=== PATIENT | female | born 1980 | race Caucasian/White ===

== ENCOUNTER → 2017-12-15 09:39 | Outpatient (CLI) | payer BC ==
[~2017-12-15 09:39] MED LIST: ADIPEX-P37.5 MG PO; IBUPROFEN800 MG PO; ULTRAM50 MG PO
[2017-12-15 10:28] LABS: BASOPHILS 0.1 % (0-2); EOSINOPHILS 0.9 % (0-7); HEMATOCRIT 40.4 % (36.0-48.0); HEMOGLOBIN 13.4 g/dL (12-16); IMMATURE GRANULOCYTES 0.1 % (0-5); LYMPHOCYTES 34.2 % (15-50); MCH 31.2 pg (26.0-34.0); MCHC 33.2 g/dL (31.0-37.0); MEAN PLATELET VOLUME 9.3 fL (7.4-10.4); MONOCYTES 8.9 % (2-11); NEUTROPHILS 55.8 % (40-80); PLATELET COUNT 307 10x3/uL (130-400); RDW 12.6 % (11.5-14.5)
[2017-12-15 11:05] LABS: ALKALINE PHOSPHATASE 78 U/L (46-116); ALT (SGPT) 41 U/L (10-68); BILIRUBIN - TOTAL 0.25 mg/dL (0.2-1.3); CALC OSMOLALITY 277 mosm/kg (275-300); CALCIUM 9.3 mg/dL (8.5-10.1); CARBON DIOXIDE 34.6 mmol/L (21.0-32.0); CHLORIDE - SERUM 103 mmol/L (98-107); CHOL - HDL RATIO 2.7 ratio (2.3-4.1); CHOLESTEROL, TOTAL 172 mg/dL (0-200); CREATININE - SERUM 0.8 mg/dL (0.6-1.3); GLUCOSE 88 mg/dL (74-106); HDL CHOLESTEROL 64 mg/dL (32-96); LDL CHOLESTEROL 90 mg/dL (0-100); LDL-HDL RATIO 1.4 ratio (1.5-3.5); PROTEIN - SERUM 7.4 g/dL (6.4-8.2); SODIUM 140 mmol/L (136-145); THYROID STIMULATING HORMONE 1.08 uIU/mL (0.36-3.74); TRIGLYCERIDE 94 mg/dL (30-200); UREA NITROGEN 13 mg/dL (7-18); eGFR NON AFRICAN AMERICAN 85 mL/min (90-120)
[2018-03-10 07:37] VITALS: BMI 27.4
== END | disposition home or self-care (01) ==
LOC: D.US 09:39
PROVIDERS: Family Medicine
DX: R22.2 Localized swelling, mass and lump, trunk (principal)

== ENCOUNTER 2018-03-10 06:57 | Day surgery (SDC) | payer BC ==
[~2018-03-10] VITALS: Ht 154.9 cm; Wt 65.8 kg
--- NOTE | ~2018-03-10 | OP ---
PATIENT NAME: JASPREET MADRIGAL MEDICAL RECORD: [id number] :76 LOCATION:[facility] ADMISSION DATE: SURGEON: CHI MORSE MD DATE OF OPERATION: 03/10/2018 PREOPERATIVE DIAGNOSIS: Subcutaneous lipomas of the right medial proximal arm as well as 2 on the lower back. POSTOPERATIVE DIAGNOSIS: Subcutaneous lipomas of the right medial proximal arm as well as 2 on the lower back. PROCEDURES: Excision of right upper extremity lipoma, large; as well as excision of 2 lower back lipomas, one on the right and one on the left. The one on the right was very deep and very large. SURGEON: Chi Morse MD MSWS: None. BLOOD LOSS: Less than 50 cc. ANESTHESIA: General. COMPLICATIONS: None. The risks, possible complications, and alternatives to the procedure were explained to the patient. She elects to proceed. The discussion specifically included, but was not limited to, bleeding requiring emergency reoperation, infection, nerve injury as well as regrowth of the lipomas. I saw the patient in the holding area. The entire examination was performed in the presence of a female nurse. All the lipomatous tissue was marked. Initially, just 2 lipomas were to be excised. However, the patient was able to identify a third lipoma which roughly overlay the left SI joint. She wanted it removed as well. These were all marked. The patient was then conveyed to the operating room. General anesthesia was induced by the anesthesia staff. The patient was placed in the full lateral decubitus position with the left side down. The right upper extremity as well as the lower back was sterilely prepped and draped. An incision was accomplished on the medial aspect of the right upper extremity. I bluntly dissected around some lipomatous tissue, which was removed in its entirety. This was a well-circumscribed lipoma. Some additional surrounding connective tissue was excised in a piecemeal fashion in order to prevent the lipoma from recurring. Ruchi was added to the cavity and then the subdermis was approximated with interrupted 3-0 Vicryls. The skin was approximated with a running intracuticular 4-0 Vicryl. Attention was then turned to the lower back. Incisions were accomplished over both lipomas. I dissected down to lipomatous tissue. On the right, the lipomatous tissue was multilobed. It was removed, some of it was removed in a piecemeal fashion. Surrounding connective tissue was excised in a piecemeal fashion as well in order to prevent the lipoma from recurring. The lipoma on the left side was better circumscribed and was removed. Additional surrounding connective tissue was excised in a piecemeal fashion in order to prevent the lipoma from recurring. At no time was there any apparent nervous injury. Ruchi was added to both subcutaneous cavities. I am OPERATIVE REPORT [id number] JASPREET MADRIGAL a little concerned that due to the amount of lipomatous tissue that was removed from the right-sided cavity, there may be a divot initially, which could be cosmetically displeasing. The subdermis was approximated with interrupted 3-0 Vicryls. The skin was approximated with a running intracuticular 4-0 Vicryl. Sterile dressings were applied. The patient was then conveyed to postanesthesia care unit, where she was in stable condition. She will be dismissed home on [place] for pain. I will see her in the office in 2-3 weeks. In the outpatient department, I saw the patient. She was able to move both lower extremities well as well as the right upper extremity. No paresthesias or numbness in these extremities. TRANSINT:[id number] Voice Confirmation ID: [id number] DOCUMENT ID: [id number] CHI MORSE MD CC: ELENA ZAYAS [id number] DICTATION DATE: 03/10/181839 MAINTENANCE AND CUSTODIAN SUPERVISOR: 03/10/182321 [facility] 03/10/18 [facility] [address] [id number]
[2018-03-10 07:37] VITALS: BP 109/69; Ht 154.9 cm; Wt 65.8 kg
[2018-03-10 08:12] LABS: HEMATOCRIT 38.3 % (36.0-48.0); MCH 31.3 pg (26.0-34.0); MCHC 33.9 g/dL (31.0-37.0); MCV 92.1 fL (80.0-100.0); MEAN PLATELET VOLUME 9.7 fL (7.4-10.4); RBC 4.16 10x6/uL (4.00-5.40); RDW 12.4 % (11.5-14.5)
== END 2018-03-10 12:45 | disposition home or self-care (01) ==
LOC: D.OPS 06:57 → D.PAN 10:30 → D.OPS 10:30 → D.PAN 11:15 → D.OPS 12:45 → D.PAN 13:00
PROVIDERS: Anesthesiology
DX: D17.21 Benign lipomatous neoplasm of skin and subcutaneous tissue of right arm (principal); D17.1 Benign lipomatous neoplasm of skin and subcutaneous tissue of trunk; Z01.812 Encounter for preprocedural laboratory examination

== ENCOUNTER 2018-04-05 06:52 | Day surgery (SDC) | payer BC ==
--- NOTE | ~2018-04-05 | OP ---
PATIENT NAME: JASPREET MADRIGAL MEDICAL RECORD: [id number] :76 LOCATION:[facility] ADMISSION DATE: SURGEON: OZZY MORSE MD DATE OF OPERATION: 04/05/2018 PREOPERATIVE DIAGNOSIS: Recurrent seroma, postop, right medial arm. POSTOPERATIVE DIAGNOSIS: Recurrent seroma, postop, right medial arm. PROCEDURE: Incision and drainage of recurrent seroma of the right medial arm with marsupialization of wound. SURGEON: Ozzy Morse MD WAREHOUSER: None. BLOOD LOSS: Minimal. ANESTHESIA: General. COMPLICATIONS: None. The risks, possible complications and alternatives to procedure were explained to the patient. She elects to proceed. OPERATIVE COURSE: The patient was conveyed to the operating room electively on 04/05/2018. General anesthesia was induced by the anesthesia staff. The right upper extremity was abducted at 90 degrees to the patient's trunk. The right upper extremity was sterilely prepped and draped. I incised into the seroma. Clear fluid was aspirated. I then marsupialized the wound with a running locking 4-0 Vicryl Rapide suture. I then instilled vancomycin powder into the wound in order to help ensure fibrosis, in order to help prevent the seroma from recurring. A sterile dressing was applied. The patient was then extubated and conveyed to post-anesthesia care unit where she was in stable condition. TRANSINT:[id number] Voice Confirmation ID: [id number] DOCUMENT ID: [id number] OZZY MORSE MD at 1840 CC: [id number] DICTATION DATE: 04/28/18 1028 PAYING TELLER: 04/28/18 1125 [facility] 04/05/18 [facility] [address] [place] [id number]
[2018-04-05 07:40] VITALS: BP 105/62; BMI 27.4
[2018-04-05 08:15] LABS: HEMATOCRIT 39.5 % (36.0-48.0); HEMOGLOBIN 13.4 g/dL (12-16); MCH 31.5 pg (26.0-34.0); MCHC 33.9 g/dL (31.0-37.0); MCV 92.9 fL (80.0-100.0); RBC 4.25 10x6/uL (4.00-5.40); RDW 12.5 % (11.5-14.5); WBC 6.3 10x3/uL (4.8-10.8)
== END 2018-04-05 12:10 | disposition home or self-care (01) ==
LOC: D.OPS 06:52
PROVIDERS: Anesthesiology
DX: L76.34 Postprocedural seroma of skin and subcutaneous tissue following other procedure (principal); Y83.8 Other surgical procedures as the cause of abnormal reaction of the patient, or of later complication, without mention of misadventure at the time of the procedure; Z01.812 Encounter for preprocedural laboratory examination

== ENCOUNTER 2018-07-15 18:08 | Emergency (ER) | payer BC ==
[~2018-07-15] VITALS: Ht 154.9 cm; Wt 68.2 kg
[2018-07-15 18:15] VITALS: Ht 154.9 cm; Wt 68.2 kg
[2018-07-15 18:35] LABS: BASOPHILS 0.1 % (0-2); EOSINOPHILS 0.3 % (0-7); HEMATOCRIT 39.5 % (36.0-48.0); HEMOGLOBIN 13.9 g/dL (12-16); IMMATURE GRANULOCYTES 0.2 % (0-5); LYMPHOCYTES 15.3 % (15-50); MCH 31.4 pg (26.0-34.0); MCHC 35.2 g/dL (31.0-37.0); MCV 89.4 fL (80.0-100.0); MEAN PLATELET VOLUME 9.5 fL (7.4-10.4); MONOCYTES 6.3 % (2-11); NEUTROPHILS 77.8 % (40-80); PLATELET COUNT 286 10x3/uL (130-400); RBC 4.42 10x6/uL (4.00-5.40); RDW 12.3 % (11.5-14.5); WBC 13.1 10x3/uL (4.8-10.8)
[2018-07-15 18:53] LABS: ALBUMIN 4.2 g/dL (3.4-5.0); ALKALINE PHOSPHATASE 90 U/L (46-116); ALT (SGPT) 31 U/L (10-68); CALC OSMOLALITY 273 mosm/kg (275-300); CARBON DIOXIDE 28.5 mmol/L (21.0-32.0); CHLORIDE - SERUM 100 mmol/L (98-107); CREATININE - SERUM 0.9 mg/dL (0.6-1.3); POTASSIUM - SERUM 3.4 mmol/L (3.5-5.1); PROTEIN - SERUM 7.6 g/dL (6.4-8.2); SODIUM 136 mmol/L (136-145); UREA NITROGEN 10 mg/dL (7-18); eGFR NON AFRICAN AMERICAN 73 mL/min (90-120)
[2018-07-15 18:54] LABS: GLUCOSE 149 mg/dL (74-106)
[2018-07-15 19:00] LABS: CKMB 0.9 U/L (0.0-3.6); CREATINE KINASE 82 UL (21-215); TROPONIN-I < 0.017 ng/mL (0.000-0.060)
[2018-07-15 19:23] LABS: APPEARANCE HAZY (CLEAR); BILIRUBIN NEGATIVE (NEGATIVE); COLOR YELLOW (YELLOW); GLUCOSE NEGATIVE (NEGATIVE); KETONE NEGATIVE (NEGATIVE); NITRITE NEGATIVE (NEGATIVE); PH 7.5 (5.0-6.0); PROTEIN NEGATIVE (NEGATIVE); UROBILINOGEN NORMAL (NORMAL)
[2018-07-15 19:27] LABS: UDS - AMPHET NEGATIVE QUAL (NEGATIVE); UDS - BARB NEGATIVE QUAL (NEGATIVE); UDS - BENZO NEGATIVE QUAL (NEGATIVE); UDS - COCAINE NEGATIVE QUAL (NEGATIVE); UDS - OPIATE NEGATIVE QUAL (NEGATIVE); UDS - PCP NEGATIVE QUAL (NEGATIVE); UDS - THC NEGATIVE QUAL (NEGATIVE)
[2018-07-15 20:53] VITALS: BP 117/66
== END 2018-07-15 20:54 | disposition home or self-care (01) ==
LOC: D.ER 18:08
PROVIDERS: Family Medicine
DX: R00.2 Palpitations (principal); E87.6 Hypokalemia